=== PATIENT | male | born 1990 | race Caucasian/White ===

== ENCOUNTER 2019-05-16 21:47 | Emergency (ER) | payer MEDICAID ==
[~2019-05-16] VITALS: Ht 172.7 cm; Wt 109.0 kg
[~2019-05-16 21:47] MED LIST: TYLENOL
[2019-05-16 22:16] VITALS: BP 117/72
== END 2019-05-17 01:30 | disposition left against medical advice (07) ==
LOC: ER 22:22
DX: R30.9 Painful micturition, unspecified (principal); Z53.21 Procedure and treatment not carried out due to patient leaving prior to being seen by health care provider
CPT/HCPCS: 82962